=== PATIENT | male | born 1955 | race Caucasian/White ===

== ENCOUNTER 2021-11-30 20:04 | Inpatient (IN) ==
[2021-11-30 21:30] LABS: BASOPHILS % (AUTO) 0.3 % (0.2-1.0); EOSINOPHILS % (AUTO) 0.2 % (0.9-2.9); HEMATOCRIT 41.7 % (42.0-54.0); HEMOGLOBIN 14.7 g/dL (13.5-18.0); LYMPHOCYTES # (AUTO) 0.8 X10^3/uL (1.3-2.9); LYMPHOCYTES % (AUTO) 8.2 % (21.0-51.0); MEAN CORPUSCULAR HEMOGLOBIN 27.9 pg (27.0-34.0); MEAN CORPUSCULAR HGB CONC 35.2 g/dL (33.0-35.0); MEAN CORPUSCULAR VOLUME 79.2 fL (80.0-100.0); MEAN PLATELET VOLUME 6.1 fL (7.4-11.0); MONOCYTES # (AUTO) 0.6 x10^3/uL (0.3-0.8); MONOCYTES % (AUTO) 6.3 % (0.0-13.0); NEUTROPHILS # (AUTO) 8.2 x10^3/uL (2.2-4.8); RED BLOOD COUNT 5.27 X10^6/uL (4.7-6.0); RED CELL DISTRIBUTION WIDTH 13.8 % (11.6-16.5); WHITE BLOOD COUNT 9.7 X10^3/uL (3.6-10.0)
[2021-11-30 21:40] LABS: ALANINE AMINOTRANSFERASE 17 Units/L (12-78); ALBUMIN 3.5 g/dL (3.4-5.0); ALKALINE PHOSPHATASE 84 Units/L (46-116); ASPARTATE AMINO TRANSFERASE 15 Units/L (15-37); BLOOD UREA NITROGEN 19 mg/dL (7-18); CALCIUM 8.5 mg/dL (8.5-10.1); CARBON DIOXIDE 23.8 mmol/L (21-32); CHLORIDE 101 mmol/L (98-107); COR NA(FOR HYPERGLY) 137 mmol/L (136-145); SODIUM 135 mmol/L (136-145); TOTAL PROTEIN 6.8 g/dL (6.4-8.2); eGFR NON BLACK RACES 59 (>60)
--- NOTE | 2021-11-30 22:13 | DR.ABDMALE ---
HPI Time seen Time Seen by Provider: 11/30/21 22:13 PCP Primary Care Physician: NFD Complaint Chief Complaint Doctors Comments: ABDOMINAL PAIN WITH DIARHEA FOR 5 DAYS. Chief Complaint:: PT AMBULATORY IN ED WITH C/O 6/10 DIFFUSE ABD PAIN. PT STATES THAT ON Friday11/26/21 AROUND 1900 HE STARTED HAVING WATERY DIARRHEA THAT LASTED UNTIL YESTERDAY. 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) PROSTATE CA Past Surgical History: Yes Past Surgical History Comment: ASCENDING COLON RESECTION D/T CA Family History History of Family Medical Conditions: No Social History Alcohol Use: None Do you use any recreational Drugs:: No Travel Risk Coronavirus risk:travel/contact w/high risk person: No Has patient experienced Coronavirus symptoms: No Infectious screening Have you traveled outside the country in the last 6 months?: No Isolation: Standard ROS Review of Systems Constitutional: Weakness Eyes: No Symptoms Reported ENTM: No Symptoms Reported Respiratoy: No Symptoms Reported Cardiovascular: No Symptoms Reported Gastrointestinal/Abdominal: Abdominal Pain and Diarrhea Genitourinary: No Symptoms Reported Neurological: No Symptoms Reported Musculoskeletal: No Symptoms Reported Integumentary: No Symptoms Reported Hematologic/Lymphatic: No Symptoms Reported Endocrine: No Symptoms Reported Psychiatric: No Symptoms Reported All Other Systems: Reviewed and Negative PE Vital Signs Vital Signs: Temp Pulse Resp BP Pulse Ox 11/30/21 20:08 97.7 F 119 H 20 118/77 97 General Limitations: No Limitations General Appearance: Alert, In No Apparent Distress and In Distress (MODERATE DISTRESS) Head Head Exam: Normal Inspection Eyes Eye exam: Normal Appearance ENT ENT Exam: Normal Exam Neck Neck Exam: Normal Inspection Chest Chest Inspection: Normal Inspection Respiratory Respiratory Exam: Normal Lung Sounds Bilat Cardiovascular Cardiovascular Exam: Regular Rate and Normal Rhythm Abdominal Exam Abdominal Exam: Normal Inspection, Normal Bowel Sounds and Tenderness Abdominal Tenderness: Diffuse and Moderate Rectal Rectal Exam: Deferred Back Back Exam: Normal Inspection Extremeties Extremities Exam: Normal Inspection Exam: Male: Deferred Neurologic Neurological Exam: Alert and Oriented X3 Psychiatric Psychiatric Exam: Normal Affect and Normal Mood Skin Skin Exam: Warm, Dry, Intact and Normal Color MDM Differential Diagnosis Differential Diagnosis: Bowel Obstruction, Diverticular disease, Gastritus/PUD and Hernia Other differential diagnosis: COLON CANCER COURSE Treatment Treatment: PATIENT REMAINED RELATIVELY STABLE IN ER AND HAD 1LITER BOLUS OF NACL ALONG WITH 4MG ZOFRAN IV FOR NAUSEA. PATIENT HAD CT SCAN OF ABDOMEN THAT SHOWED DIVERTICULITIS AND ADHESIONS WITH BILATERAL INGUINAL HERNIAS AND FREE FLUID IN RETROVESICAL POUCH. 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 I SPOKE TO THE PATIENT ABOUT THE CONSULTATION AND TOLD HIM WHAT HE SAID AND HE STATED THAT HE WOULD BE OK WITH SEEING TO LOCAL SURGEON. SPOKE TO DR FLORES [id number] AND HE STATED THAT HE WOULD EVALUATE THE PATIENT FOR ADHESIONS AND DIVERTICULITIS. HE STATED TO MAKE PATIEN NPO AND START ZOSYN AND FLAGYL. WILL START PROTONIX 40MG IV Q 24 AND GIVE MEDICATIONS FOR PAINAND NAUSEA. ROR Labs Reviewed Laboratory Results Reviewed?: Yes Result Diagrams: 11/30/21 21:21 11/30/21 21:21 Laboratory: WBC 9.7 X10^3/uL (3.6-10.0) 11/30/21 21:21 RBC 5.27 X10^6/uL (4.7-6.0) 11/30/21 21:21 Hgb 14.7 g/dL (13.5-18.0) 11/30/21 21:21 Hct 41.7 % (42.0-54.0) L 11/30/21 21:21 MCV 79.2 fL (80.0-100.0) L 11/30/21 21:21 MCH 27.9 pg (27.0-34.0) 11/30/21 21:21 MCHC 35.2 g/dL (33.0-35.0) H 11/30/21 21:21 RDW 13.8 % (11.6-16.5) 11/30/21 21:21 Plt Count 227 X10^3/uL (150.0-450.0) 11/30/21 21:21 MPV 6.1 fL (7.4-11.0) L 11/30/21 21:21 Neut % (Auto) 85.0 % (42.0-75.0) H 11/30/21 21:21 Lymph % (Auto) 8.2 % (21.0-51.0) L 11/30/21 21:21 [place] % (Auto) 6.3 % (0.0-13.0) 11/30/21 21:21 Eos % (Auto) 0.2 % (0.9-2.9) L 11/30/21 21:21 Baso % (Auto) 0.3 % (0.2-1.0) 11/30/21 21:21 Neut # (Auto) 8.2 x10^3/uL (2.2-4.8) H 11/30/21 21:21 Lymph # (Auto) 0.8 X10^3/uL (1.3-2.9) L 11/30/21 21:21 [place] # (Auto) 0.6 x10^3/uL (0.3-0.8) 11/30/21 21:21 Eos # (Auto) 0.0 x10^3/uL (0.0-0.2) 11/30/21 21:21 Baso # (Auto) 0.0 X10^3/uL (0.0-0.1) 11/30/21 21:21 Absolute Nucleated RBC 0.0 /100WBC 11/30/21 21:21 Sodium 135 mmol/L (136-145) L 11/30/21 21:21 Corrected Sodium 137 mmol/L (136-145) 11/30/21 21:21 Potassium 3.4 mmol/L (3.5-5.1) L 11/30/21 21:21 Chloride 101 mmol/L (98-107) 11/30/21 21:21 Carbon Dioxide 23.8 mmol/L (21-32) 11/30/21 21:21 BUN 19 mg/dL (7-18) H 11/30/21 21:21 Creatinine 1.30 mg/dL (0.70-1.30) 11/30/21 21:21 Est GFR (MDRD) Af Amer > 60 (>60) 11/30/21 21:21 Est GFR (MDRD) Non-Af 59 (>60) 11/30/21 21:21 Glucose 163 mg/dL (65-99) H 11/30/21 21:21 Calcium 8.5 mg/dL (8.5-10.1) 11/30/21 21:21 Corrected Calcium TNP 11/30/21 21:21 Total Bilirubin 0.40 mg/dL (0.2-1.0) 11/30/21 21:21 AST 15 Units/L (15-37) 11/30/21 21:21 ALT 17 Units/L (12-78) 11/30/21 21:21 Alkaline Phosphatase 84 Units/L (46-116) 11/30/21 21:21 Total Protein 6.8 g/dL (6.4-8.2) 11/30/21 21:21 Albumin 3.5 g/dL (3.4-5.0) 11/30/21 21:21 Globulin 3.3 g/dL (2.5-4.5) 11/30/21 21:21 Albumin/Globulin Ratio 1.1 Ratio (1.1-2.1) 11/30/21 21:21 Specimen Type Clean catch urine 12/01/21 00: Urine Color Yellow (YELLOW) 12/01/21 00: Urine Appearance Clear (CLEAR) 12/01/21 00: Urine pH 5.0 (5.0 - 8.0) 12/01/21 00:27 Ur Specific [place] 1.020 (1.000-1.030) 12/01/21 00: Urine Protein Negative (NEGATIVE) 12/01/21 00: Urine Glucose (UA) Negative (NEGATIVE) 12/01/21 00: Urine Ketones 3+ (NEGATIVE) 12/01/21 00: Urine Blood 2+ (NEGATIVE) 12/01/21 00: Urine Nitrite Negative (NEGATIVE) 12/01/21 00: Urine Bilirubin Negative (NEGATIVE) 12/01/21 00: Urine Urobilinogen Normal (NORMAL) 12/01/21 00: Ur Leukocyte Esterase Negative (NEGATIVE) 12/01/21 00: Urine RBC 0-2 /HPF (0-3) 12/01/21 00: Urine WBC None seen /HPF (0-5) 12/01/21 00:27 Ur Squamous Epith Cells Rare /HPF (NEGATIVE) 12/01/21 00:27 Urine Bacteria Negative /HPF (NEGATIVE) 12/01/21 00:27 Ur Culture Indicated? No/not indicated 12/01/21 00:27 Opioid Opioid Risk Tool Age (Alfredo box if 16-45): No History of Preadolescent Sexual Abuse: No Total: 0 Total Score Risk Category: Low Risk Copyright: Landry MILLAN predicting aberrant behaviors Diagnosis Discharge Problem: Diverticulitis, Adhesion of intestine, Acute hypokalemia Abdominal pain Qualifiers: Qualified Code(s): R10.9 - Unspecified abdominal pain Instructions Forms: Precautions for COVID19 [facility] Patient Portal Social Distancing
[2021-11-30] MEDS ORDERED: NS 1,000 ML IV 1,000 ML IV ONE (22:14)
[2021-11-30] MEDS ORDERED: NS 1,000 ML IV 1,000 ML ONE (22:27)
--- NOTE | 2021-11-30 23:05 | CT ---
HISTORYDIFFUSE ABD PAIN, HX OF COLON CANCER WITH RESECTIONSTUDYABDOMEN/PELVIS W/O CONCOMPARISONNone.TECHNIQUEMultiple axial images of the abdomen and pelvis were obtained from the lung bases to the pubic symphysis without the administration of IV contrast. Dose reduction techniques including Automated Exposure Control (AEC) and adjustment of mA and kV were utilized.FINDINGSThe visualized portions of the lung bases are unremarkable .The liver reveals a medial aspect of the right hepatic lobe low-attenuation probable cyst measuring 2 centimeters. The spleen, pancreas, kidneys, and adrenal glands are unremarkable in their CT appearance. 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 There is small bowel anastomosis with anastomotic suture clips seen involving a small bowel loop within the right upper quadrant with significant inflammatory changes also seen. This small bowel loop also appears to be interconnected the transverse colon with anastomotic suture clips also seen at this area. It is unclear if this represent adhesions. Significant inflammatory changes are noted within the right upper quadrant mesenteric and omental fat in the area of the bowel anastomoses. There is also a prominent supraumbilical hernia with herniation of omental fat through the defect. This is incarcerated. Strangulation can't be fully excluded of the omental fat since there are marked inflammatory changes including engorgement of the small vessels of the omental fat. There is an umbilical hernia also seen with herniation of a portion of the redundant sigmoid colon through the defect at the level of the umbilicus. This is neither incarcerated or strangulated. There are also diverticuli noted of the distal descending colon at its junction with the proximal sigmoid colon with mild circumferential thickening of the petit and a few diverticuli. Pericolonic inflammatory changes within the left lower quadrant are also seen and acute diverticulitis is also of concern. There is a significant amount of fluid within the rectovesical pouch which is an abnormal finding in a male patient. There are bilateral inguinal hernias with herniation of omental fat through the defects, larger on the right than the left. There is tenting and scarring involving the right anterior aspect of the urinary bladder with inflammatory changes also seen in this area.There are multiple radiation seed implants studding the prostate gland.IMPRESSION1. Marked inflammatory changes involving small bowel and large bowel anastomosis within the right upper quadrant. There may be adhesions in this area but anastomosis of the small bowel to large bowel in this location cannot be fully excluded. 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 A surgical consult is recommended for this finding.2. Prominent supraumbilical ventral abdominal wall hernia with herniation of omental fat through the defect. This is incarcerated and strangulation of the omental fat can't be fully excluded since there is significant inflammatory changes also seen of the herniated portion of fat. An umbilical hernia is also seen with herniation of omental fat and the redundant sigmoid colon through the defect. This is neither incarcerated or strangulated.3. Acute diverticulitis of the distal descending colon at its junction with the proximal sigmoid colon. Surrounding inflammatory changes in the left lower quadrant is also seen without perforation or abscess formation.4. Significant free fluid in the rectovesical pouch of unclear etiology.Electronically signed by: Albertina Clay (November 30, 2021 23:03:50)
[2021-12-01 00:47] LABS: BILIRUBIN,URINE NEGATIVE (NEGATIVE); BLOOD/HEMOGLOBIN,URINE 2+ (NEGATIVE); GLUCOSE, URINE NEGATIVE (NEGATIVE); KETONES,URINE 3+ (NEGATIVE); LEUKOCYTE ESTERASE ,URINE NEGATIVE (NEGATIVE); NITRITES,URINE NEGATIVE (NEGATIVE); PROTEIN,URINE NEGATIVE (NEGATIVE); UROBILINOGEN,URINE NORMAL (NORMAL)
[2021-12-01 01:18] LABS: APPEARANCE,URINE CLEAR (CLEAR); BACTERIA,URINE NEGATIVE /HPF (NEGATIVE); COLOR,URINE YELLOW (YELLOW); RBC,URINE 0-2 /HPF (0-3); SQUAMOUS EPITHELIAL CELL,UR RARE /HPF (NEGATIVE)
[2021-12-01] MEDS ORDERED: ZOSYN VIAL 3.375 GRAMS 3.375 G in NS 100 ML IV 100 ML IV ONE (02:46)
[2021-12-01] MEDS ORDERED: DEMEROL INJ IVP PRN (02:47)
[2021-12-01] MEDS ORDERED: DEMEROL INJ ONE (03:01)
[2021-12-01] MEDS ORDERED: NS + KCL 20 MEQ/L 1,000 ML IV ONE (03:02)
[2021-12-01] MEDS ORDERED: ZOSYN VIAL 3.375 GRAMS IV ONE (03:02)
[2021-12-01] MEDS ORDERED: NS 100 ML IV 100 ML ONE (03:03)
[2021-12-01] MEDS ORDERED: ZOFRAN INJ 4 MG VIAL ONE (03:03)
[2021-12-01] MEDS ORDERED: ZOFRAN INJ 4 MG VIAL IVP PRN (03:19)
[2021-12-01] MEDS: NS + KCL 20 MEQ/L 1,000 ML IV SCH ×3 (03:19→21:17)
[2021-12-01] MEDS: FLAGYL IV PREMIX 500 MG BAG 500 MG/100 ML BAG IV SCH ×4 (05:15→21:18)
[2021-12-01 06:10] VITALS: BMI 32.3
[2021-12-01] MEDS: PROTONIX INJ 40 MG VIAL IVP SCH (09:50)
[2021-12-01] MEDS ORDERED: MORPHINE SULFATE INJ 2 MG INJ IVP PRN (10:35)
--- NOTE | 2021-12-01 11:04 | DR.PROGNOT ---
Hospital Progress Notes - Progress Note for Day of: Progress Note Date: 12/01/21 - Chief Complaint Chief Complaint: Pt is admitted with acute diverticulitis .. feeling slightly better this am .. no nausean or vomiting .. temp 99. - Past Medical Family Social History Past Med/Fam/Surg Hx: No changes since H&P Allergies: Allergies No Known Drug Allergies Allergy (Verified 11/30/21 20:23) - Review Of Systems ROS: No change since H&P - Vital Signs Vital Signs: Temperature 99.1 F Pulse Rate [Left] 88 Pulse Rate 119 Respiratory Rate 20 Blood Pressure [Left Arm] 126/70 Blood Pressure 118/77 O2 Sat by Pulse Oximetry 96 - Physical Exam Oriented: Normal Eyes: Normal Ear: Normal Nose: Normal Respiratory: Normal Cardiovascular: Normal : Normal GI:Auscultation: Decreased GI:Palpation: Other (soft abdomen with diffuse tenderness more on LLQ ..has small ventral hernia ) Speech Pattern: Clear, Appropriate - Laboratory and Diagnostics Result Diagrams: 11/30/21 21:21 11/30/21 21:21 Labs: Laboratory WBC 9.7 X10^3/uL (3.6-10.0) 11/30/21 21:21 RBC 5.27 X10^6/uL (4.7-6.0) 11/30/21 21:21 Hgb 14.7 g/dL (13.5-18.0) 11/30/21 21:21 Hct 41.7 % (42.0-54.0) L 11/30/21 21:21 MCV 79.2 fL (80.0-100.0) L 11/30/21 21:21 MCH 27.9 pg (27.0-34.0) 11/30/21 21:21 MCHC 35.2 g/dL (33.0-35.0) H 11/30/21 21:21 RDW 13.8 % (11.6-16.5) 11/30/21 21:21 Plt Count 227 X10^3/uL (150.0-450.0) 11/30/21 21:21 MPV 6.1 fL (7.4-11.0) L 11/30/21 21:21 Neut % (Auto) 85.0 % (42.0-75.0) H 11/30/21 21:21 Lymph % (Auto) 8.2 % (21.0-51.0) L 11/30/21 21:21 [place] % (Auto) 6.3 % (0.0-13.0) 11/30/21 21:21 Eos % (Auto) 0.2 % (0.9-2.9) L 11/30/21 21:21 Baso % (Auto) 0.3 % (0.2-1.0) 11/30/21 21:21 Neut # (Auto) 8.2 x10^3/uL (2.2-4.8) H 11/30/21 21:21 Lymph # (Auto) 0.8 X10^3/uL (1.3-2.9) L 11/30/21 21:21 [place] # (Auto) 0.6 x10^3/uL (0.3-0.8) 11/30/21 21:21 Eos # (Auto) 0.0 x10^3/uL (0.0-0.2) 11/30/21 21:21 Baso # (Auto) 0.0 X10^3/uL (0.0-0.1) 11/30/21 21:21 Absolute Nucleated RBC 0.0 /100WBC 11/30/21 21:21 Sodium 135 mmol/L (136-145) L 11/30/21 21:21 Corrected Sodium 137 mmol/L (136-145) 11/30/21 21:21 Potassium 3.4 mmol/L (3.5-5.1) L 11/30/21 21:21 Chloride 101 mmol/L (98-107) 11/30/21 21:21 Carbon Dioxide 23.8 mmol/L (21-32) 11/30/21 21:21 BUN 19 mg/dL (7-18) H 11/30/21 21:21 Creatinine 1.30 mg/dL (0.70-1.30) 11/30/21 21:21 Est GFR (MDRD) Af Amer > 60 (>60) 11/30/21 21:21 Est GFR (MDRD) Non-Af 59 (>60) 11/30/21 21:21 Glucose 163 mg/dL (65-99) H 11/30/21 21:21 Calcium 8.5 mg/dL (8.5-10.1) 11/30/21 21:21 Corrected Calcium TNP 11/30/21 21:21 Total Bilirubin 0.40 mg/dL (0.2-1.0) 11/30/21 21:21 AST 15 Units/L (15-37) 11/30/21 21:21 ALT 17 Units/L (12-78) 11/30/21 21:21 Alkaline Phosphatase 84 Units/L (46-116) 11/30/21 21:21 Total Protein 6.8 g/dL (6.4-8.2) 11/30/21 21: Albumin 3.5 g/dL (3.4-5.0) 11/30/21 21: Globulin 3.3 g/dL (2.5-4.5) 11/30/21 21: Albumin/Globulin Ratio 1.1 Ratio (1.1-2.1) 11/30/21 21:21 Specimen Type Clean catch urine 12/01/21 00: Urine Color Yellow (YELLOW) 12/01/21 00: Urine Appearance Clear (CLEAR) 12/01/21 00: Urine pH 5.0 (5.0 - 8.0) 12/01/21 00: Ur Specific [place] 1.020 (1.000-1.030) 12/01/21 00: Urine Protein Negative (NEGATIVE) 12/01/21 00: Urine Glucose (UA) Negative (NEGATIVE) 12/01/21 00: Urine Ketones 3+ (NEGATIVE) 12/01/21 00: Urine Blood 2+ (NEGATIVE) 12/01/21 00: Urine Nitrite Negative (NEGATIVE) 12/01/21 00: Urine Bilirubin Negative (NEGATIVE) 12/01/21 00: Urine Urobilinogen Normal (NORMAL) 12/01/21 00: Ur Leukocyte Esterase Negative (NEGATIVE) 12/01/21 00: Urine RBC 0-2 /HPF (0-3) 12/01/21 00: Urine WBC None seen /HPF (0-5) 12/01/21 00: Ur Squamous Epith Cells Rare /HPF (NEGATIVE) 12/01/21 00: Urine Bacteria Negative /HPF (NEGATIVE) 12/01/21 00: Ur Culture Indicated? No/not indicated 12/01/21 00:27 SARS-CoV-2 (PCR) Negative (NEGATIVE) 12/01/21 02:32 - Assessment and Plan 1: acute sigmoid diverticulitis .. ventral and umbilical hernias . h/o colon and prostate ca . on IV ABT . IVF , NPO ( may have water ) . DVT prophylaxis . - Problem Patient Problems: Patient Problems Diverticulitis (Acute) K57.92 Adhesion of intestine (Acute) K66.0 Acute hypokalemia (Acute) E87.6 Abdominal pain (Acute) R10.9
[2021-12-01] MEDS: LOVENOX INJ 40 MG SYR SC SCH (12:37)
[2021-12-01] MEDS: ZOSYN VIAL 3.375 GRAMS 3.375 G in NS 100 ML IV 100 ML IV SCH ×3 (12:37→21:18)
[2021-12-01] MEDS ORDERED: TYLENOL 325 MG TAB PO PRN (16:34)
[2021-12-02] MEDS: NS + KCL 20 MEQ/L 1,000 ML IV SCH ×3 (02:15→20:40)
[2021-12-02] MEDS: FLAGYL IV PREMIX 500 MG BAG 500 MG/100 ML BAG IV SCH ×4 (02:43→20:40)
[2021-12-02] MEDS: ZOSYN VIAL 3.375 GRAMS 3.375 G in NS 100 ML IV 100 ML IV SCH ×3 (05:54→22:03)
--- NOTE | 2021-12-02 07:08 | RAD ---
HISTORYDiverticulitisSTUDYKUBCOMPARISON .br.br.br.br.br.br moderate gaseous distention of scattered segments of small and large bowel. No localized mass, ascites, abnormal calcification or visceral enlargement noted. Radiation seed sources are noted in the prostate.IMPRESSIONNonobstructive intestinal distention. No localized abnormality demonstrated. Evidence of prostate brachytherapy.Electronically signed by: HIGINIO SOTO (December 02, 2021 07:06:49)
[2021-12-02] MEDS ORDERED: KLOR-CON PO PRN (07:52)
[2021-12-02] MEDS ORDERED: MICRO K EXTEN CAP 10 MEQ PO PRN (07:52)
[2021-12-02] MEDS ORDERED: K-RIDER 10 MEQ/NS 100 ML 10 MEQ/100 ML BAG IV PRN (07:52)
[2021-12-02] MEDS ORDERED: POTASSIUM CHL 40 MEQ/NS 0.45% 500 ML IV PRN (07:52)
[2021-12-02] MEDS ORDERED: POTASSIUM CHL 60 MEQ/NS 0.45% 500 ML IV PRN (07:52)
[2021-12-02] MEDS ORDERED: K-DUR TAB 20 MEQ PO PRN (07:52)
[2021-12-02] MEDS ORDERED: POTASSIUM CHLORIDE LIQ 20 MEQ UDC PO PRN (07:52)
[2021-12-02] MEDS: LOVENOX INJ 40 MG SYR SC SCH (09:31)
[2021-12-02] MEDS: PROTONIX INJ 40 MG VIAL IVP SCH (09:32)
--- NOTE | 2021-12-02 09:35 | DR.PROGNOT ---
Hospital Progress Notes - Progress Note for Day of: Progress Note Date: 12/02/21 - Chief Complaint Chief Complaint: Pt is admitted with acute diverticulitis .. feeling slightly better this am .. had small sift BM. c/o being full and tight abdomen .. no nausean or vomiting .. temp 98.2. afebrile . - Past Medical Family Social History Past Med/Fam/Surg Hx: No changes since H&P Allergies: Allergies No Known Drug Allergies Allergy (Verified 11/30/21 20:23) - Review Of Systems ROS: No change since H&P - Vital Signs Vital Signs: Temperature 98.2 F Pulse Rate [Left] 70 Pulse Rate 119 Respiratory Rate 18 Blood Pressure [Right Arm] 130/73 Blood Pressure [Left Arm] 126/64 Blood Pressure 118/77 O2 Sat by Pulse Oximetry 96 - Physical Exam Oriented: Normal Eyes: Normal Ear: Normal Nose: Normal Respiratory: Normal Cardiovascular: Normal : Normal GI:Auscultation: Decreased GI:Palpation: Other (soft abdomen with diffuse tenderness more on LLQ ..has sma ll ventral hernia ) GI: Tenderness: Other (soft, full abdomen with diffuse tenderness .. BS+ ,hypoactive .) Speech Pattern: Clear, Appropriate - Laboratory and Diagnostics Result Diagrams: 11/30/21 21:21 11/30/21 21:21 Labs: Laboratory WBC 9.7 X10^3/uL (3.6-10.0) 11/30/21 21:21 RBC 5.27 X10^6/uL (4.7-6.0) 11/30/21 21:21 Hgb 14.7 g/dL (13.5-18.0) 11/30/21 21:21 Hct 41.7 % (42.0-54.0) L 11/30/21 21:21 MCV 79.2 fL (80.0-100.0) L 11/30/21 21:21 MCH 27.9 pg (27.0-34.0) 11/30/21 21:21 MCHC 35.2 g/dL (33.0-35.0) H 11/30/21 21:21 RDW 13.8 % (11.6-16.5) 11/30/21 21:21 Plt Count 227 X10^3/uL (150.0-450.0) 11/30/21 21:21 MPV 6.1 fL (7.4-11.0) L 11/30/21 21:21 Neut % (Auto) 85.0 % (42.0-75.0) H 11/30/21 21:21 Lymph % (Auto) 8.2 % (21.0-51.0) L 11/30/21 21:21 [place] % (Auto) 6.3 % (0.0-13.0) 11/30/21 21:21 Eos % (Auto) 0.2 % (0.9-2.9) L 11/30/21 21:21 Baso % (Auto) 0.3 % (0.2-1.0) 11/30/21 21:21 Neut # (Auto) 8.2 x10^3/uL (2.2-4.8) H 11/30/21 21:21 Lymph # (Auto) 0.8 X10^3/uL (1.3-2.9) L 11/30/21 21:21 [place] # (Auto) 0.6 x10^3/uL (0.3-0.8) 11/30/21 21:21 Eos # (Auto) 0.0 x10^3/uL (0.0-0.2) 11/30/21 21:21 Baso # (Auto) 0.0 X10^3/uL (0.0-0.1) 11/30/21 21:21 Absolute Nucleated RBC 0.0 /100WBC 11/30/21 21:21 Sodium 135 mmol/L (136-145) L 11/30/21 21:21 Corrected Sodium 137 mmol/L (136-145) 11/30/21 21:21 Potassium 3.4 mmol/L (3.5-5.1) L 11/30/21 21:21 Chloride 101 mmol/L (98-107) 11/30/21 21:21 Carbon Dioxide 23.8 mmol/L (21-32) 11/30/21 21:21 BUN 19 mg/dL (7-18) H 11/30/21 21:21 Creatinine 1.30 mg/dL (0.70-1.30) 11/30/21 21:21 Est GFR (MDRD) Af Amer > 60 (>60) 11/30/21 21:21 Est GFR (MDRD) Non-Af 59 (>60) 11/30/21 21:21 Glucose 163 mg/dL (65-99) H 11/30/21 21:21 Calcium 8.5 mg/dL (8.5-10.1) 11/30/21 21:21 Corrected Calcium TNP 11/30/21 21:21 Magnesium 1.7 mg/dL (1.7-2.9) 12/02/21 08:07 Total Bilirubin 0.40 mg/dL (0.2-1.0) 11/30/21 21:21 AST 15 Units/L (15-37) 11/30/21 21:21 ALT 17 Units/L (12-78) 11/30/21 21:21 Alkaline Phosphatase 84 Units/L (46-116) 11/30/21 21:21 Total Protein 6.8 g/dL (6.4-8.2) 11/30/21 21:21 Albumin 3.5 g/dL (3.4-5.0) 11/30/21 21: Globulin 3.3 g/dL (2.5-4.5) 11/30/21 21:21 Albumin/Globulin Ratio 1.1 Ratio (1.1-2.1) 11/30/21 21:21 Specimen Type Clean catch urine 12/01/21 00:27 Urine Color Yellow (YELLOW) 12/01/21 00: Urine Appearance Clear (CLEAR) 12/01/21 00: Urine pH 5.0 (5.0 - 8.0) 12/01/21 00: Ur Specific [place] 1.020 (1.000-1.030) 12/01/21 00: Urine Protein Negative (NEGATIVE) 12/01/21 00: Urine Glucose (UA) Negative (NEGATIVE) 12/01/21 00: Urine Ketones 3+ (NEGATIVE) 12/01/21 00: Urine Blood 2+ (NEGATIVE) 12/01/21 00: Urine Nitrite Negative (NEGATIVE) 12/01/21 00: Urine Bilirubin Negative (NEGATIVE) 12/01/21 00: Urine Urobilinogen Normal (NORMAL) 12/01/21 00: Ur Leukocyte Esterase Negative (NEGATIVE) 12/01/21 00: Urine RBC 0-2 /HPF (0-3) 12/01/21 00:27 Urine WBC None seen /HPF (0-5) 12/01/21 00:27 Ur Squamous Epith Cells Rare /HPF (NEGATIVE) 12/01/21 00:27 Urine Bacteria Negative /HPF (NEGATIVE) 12/01/21 00:27 Ur Culture Indicated? No/not indicated 12/01/21 00:27 SARS-CoV-2 (PCR) Negative (NEGATIVE) 12/01/21 02:32 - Assessment and Plan 1: acute sigmoid diverticulitis .. ventral and umbilical hernias . h/o colon and prostate ca . on IV ABT . IVF ,. clear liquid . DVT prophylaxis . - Problem Patient Problems: Patient Problems Diverticulitis (Acute) K57.92 Adhesion of intestine (Acute) K66.0 Acute hypokalemia (Acute) E87.6 Abdominal pain (Acute) R10.9
[2021-12-03] MEDS: NS + KCL 20 MEQ/L 1,000 ML IV SCH ×4 (03:00→20:57)
[2021-12-03] MEDS: FLAGYL IV PREMIX 500 MG BAG 500 MG/100 ML BAG IV SCH ×4 (04:00→21:05)
[2021-12-03 06:12] LABS: BLOOD UREA NITROGEN 6 mg/dL (7-18); CALCIUM 7.8 mg/dL (8.5-10.1); CARBON DIOXIDE 22.6 mmol/L (21-32); CHLORIDE 106 mmol/L (98-107); CREATININE 0.87 mg/dL (0.70-1.30); SODIUM 139 mmol/L (136-145); eGFR NON BLACK RACES > 60 (>60)
[2021-12-03 06:16] LABS: BASOPHILS # (AUTO) 0.1 X10^3/uL (0.0-0.1); BASOPHILS % (AUTO) 0.6 % (0.2-1.0); EOSINOPHILS # (AUTO) 0.1 x10^3/uL (0.0-0.2); EOSINOPHILS % (AUTO) 0.9 % (0.9-2.9); HEMATOCRIT 32.4 % (42.0-54.0); HEMOGLOBIN 11.7 g/dL (13.5-18.0); LYMPHOCYTES # (AUTO) 1.1 X10^3/uL (1.3-2.9); LYMPHOCYTES % (AUTO) 13.6 % (21.0-51.0); MEAN CORPUSCULAR HEMOGLOBIN 28.5 pg (27.0-34.0); MEAN CORPUSCULAR HGB CONC 36.1 g/dL (33.0-35.0); MEAN CORPUSCULAR VOLUME 78.9 fL (80.0-100.0); MEAN PLATELET VOLUME 6.2 fL (7.4-11.0); MONOCYTES # (AUTO) 0.7 x10^3/uL (0.3-0.8); MONOCYTES % (AUTO) 9.4 % (0.0-13.0); NEUTROPHILS # (AUTO) 5.9 x10^3/uL (2.2-4.8); NEUTROPHILS % (AUTO) 75.5 % (42.0-75.0); RED BLOOD COUNT 4.11 X10^6/uL (4.7-6.0); RED CELL DISTRIBUTION WIDTH 14.1 % (11.6-16.5); WHITE BLOOD COUNT 7.9 X10^3/uL (3.6-10.0)
[2021-12-03] MEDS: ZOSYN VIAL 3.375 GRAMS 3.375 G in NS 100 ML IV 100 ML IV SCH ×3 (06:33→22:36)
--- NOTE | 2021-12-03 06:40 | RAD ---
HISTORYDiverticulitisSTUDYKUBCOMPARISON .br.br.br.br.br.br nonspecific and nonobstructive. No abnormal masses or abnormal calcifications are identified. Regional skeleton is unremarkable.IMPRESSIONNonspecific, nonobstructive bowel gas patternElectronically signed by: ARLENE LIN (December 03, 2021 06:38:53)
[2021-12-03] MEDS ORDERED: ATIVAN TAB 1 MG PO PRN (08:22)
[2021-12-03] MEDS: LOVENOX INJ 40 MG SYR SC SCH (09:17)
[2021-12-03] MEDS: PROTONIX INJ 40 MG VIAL IVP SCH (09:17)
--- NOTE | 2021-12-03 14:44 | DR.PROGNOT ---
Hospital Progress Notes - Progress Note for Day of: Progress Note Date: 12/03/21 - Chief Complaint Chief Complaint: feeling better this am .. had normal BM. still having fullness of the abdomen .. no nausean or vomiting .. afebrile . - Past Medical Family Social History Past Med/Fam/Surg Hx: No changes since H&P Allergies: Allergies No Known Drug Allergies Allergy (Verified 11/30/21 20:23) - Review Of Systems ROS: No change since H&P - Vital Signs Vital Signs: Temperature 97.5 F Pulse Rate [Left] 71 Pulse Rate 119 Respiratory Rate 20 Blood Pressure [Right Arm] 140/72 Blood Pressure [Left Arm] 126/64 Blood Pressure 118/77 O2 Sat by Pulse Oximetry 98 - Physical Exam Oriented: Normal Eyes: Normal Ear: Normal Nose: Normal Respiratory: Normal Cardiovascular: Normal : Normal GI:Auscultation: Decreased GI:Palpation: Other (soft abdomen with diffuse tenderness more on LLQ ..has small ventral hernia ) GI: Tenderness: Other (soft, full abdomen with diffuse tenderness .. BS+ ,hypoactive .) Speech Pattern: Clear, Appropriate - Laboratory and Diagnostics Result Diagrams: 12/03/21 05:33 12/03/21 05:32 Labs: Laboratory WBC 7.9 X10^3/uL (3.6-10.0) 12/03/21 05:33 RBC 4.11 X10^6/uL (4.7-6.0) L 12/03/21 05:33 Hgb 11.7 g/dL (13.5-18.0) L D 12/03/21 05:33 Hct 32.4 % (42.0-54.0) L 12/03/21 05:33 MCV 78.9 fL (80.0-100.0) L 12/03/21 05:33 MCH 28.5 pg (27.0-34.0) 12/03/21 05:33 MCHC 36.1 g/dL (33.0-35.0) H 12/03/21 05:33 RDW 14.1 % (11.6-16.5) 12/03/21 05:33 Plt Count 244 X10^3/uL (150.0-450.0) 12/03/21 05:33 MPV 6.2 fL (7.4-11.0) L 12/03/21 05:33 Neut % (Auto) 75.5 % (42.0-75.0) H 12/03/21 05:33 Lymph % (Auto) 13.6 % (21.0-51.0) L 12/03/21 05:33 [place] % (Auto) 9.4 % (0.0-13.0) 12/03/21 05:33 Eos % (Auto) 0.9 % (0.9-2.9) 12/03/21 05:33 Baso % (Auto) 0.6 % (0.2-1.0) 12/03/21 05:33 Neut # (Auto) 5.9 x10^3/uL (2.2-4.8) H 12/03/21 05:33 Lymph # (Auto) 1.1 X10^3/uL (1.3-2.9) L 12/03/21 05:33 [place] # (Auto) 0.7 x10^3/uL (0.3-0.8) 12/03/21 05:33 Eos # (Auto) 0.1 x10^3/uL (0.0-0.2) 12/03/21 05:33 Baso # (Auto) 0.1 X10^3/uL (0.0-0.1) 12/03/21 05:33 Absolute Nucleated RBC 0.0 /100WBC 12/03/21 05:33 Sodium 139 mmol/L (136-145) 12/03/21 05:32 Corrected Sodium TNP 12/03/21 05:32 Potassium 3.5 mmol/L (3.5-5.1) 12/03/21 05:32 Chloride 106 mmol/L (98-107) 12/03/21 05:32 Carbon Dioxide 22.6 mmol/L (21-32) 12/03/21 05:32 BUN 6 mg/dL (7-18) L 12/03/21 05:32 Creatinine 0.87 mg/dL (0.70-1.30) 12/03/21 05:32 Est GFR (MDRD) Af Amer > 60 (>60) 12/03/21 05:32 Est GFR (MDRD) Non-Af > 60 (>60) 12/03/21 05:32 Glucose 100 mg/dL (65-99) H 12/03/21 05:32 Calcium 7.8 mg/dL (8.5-10.1) L 12/03/21 05:32 Corrected Calcium TNP 11/30/21 21:21 Magnesium 1.7 mg/dL (1.7-2.9) 12/02/21 08:07 Total Bilirubin 0.40 mg/dL (0.2-1.0) 11/30/21 21:21 AST 15 Units/L (15-37) 11/30/21 21:21 ALT 17 Units/L (12-78) 11/30/21 21:21 Alkaline Phosphatase 84 Units/L (46-116) 11/30/21 21:21 Total Protein 6.8 g/dL (6.4-8.2) 11/30/21 21:21 Albumin 3.5 g/dL (3.4-5.0) 11/30/21 21:21 Globulin 3.3 g/dL (2.5-4.5) 11/30/21 21:21 Albumin/Globulin Ratio 1.1 Ratio (1.1-2.1) 11/30/21 21:21 Specimen Type Clean catch urine 12/01/21 00:27 Urine Color Yellow (YELLOW) 12/01/21 00: Urine Appearance Clear (CLEAR) 12/01/21 00: Urine pH 5.0 (5.0 - 8.0) 12/01/21 00:27 Ur Specific [place] 1.020 (1.000-1.030) 12/01/21 00:27 Urine Protein Negative (NEGATIVE) 12/01/21 00: Urine Glucose (UA) Negative (NEGATIVE) 12/01/21 00: Urine Ketones 3+ (NEGATIVE) 12/01/21 00: Urine Blood 2+ (NEGATIVE) 12/01/21 00: Urine Nitrite Negative (NEGATIVE) 12/01/21 00: Urine Bilirubin Negative (NEGATIVE) 12/01/21 00: Urine Urobilinogen Normal (NORMAL) 12/01/21 00: Ur Leukocyte Esterase Negative (NEGATIVE) 12/01/21 00:27 Urine RBC 0-2 /HPF (0-3) 12/01/21 00: Urine WBC None seen /HPF (0-5) 12/01/21 00:27 Ur Squamous Epith Cells Rare /HPF (NEGATIVE) 12/01/21 00:27 Urine Bacteria Negative /HPF (NEGATIVE) 12/01/21 00:27 Ur Culture Indicated? No/not indicated 12/01/21 00:27 SARS-CoV-2 (PCR) Negative (NEGATIVE) 12/01/21 02:32 - Assessment and Plan 1: acute sigmoid diverticulitis .. ventral and umbilical hernias , no obstruction .. h/o colon and prostate ca . on IV ABT . IVF ,. full liquid today . . DVT prophylaxis . - Problem Patient Problems: Patient Problems Diverticulitis (Acute) K57.92 Adhesion of intestine (Acute) K66.0 Acute hypokalemia (Acute) E87.6 Abdominal pain (Acute) R10.9
[2021-12-03] MEDS: MAGNESIUM SULFATE 1 GRAM/100 mL PREMIX 1 G/100 ML BAG IV PRN ×2 (17:30→19:46)
[2021-12-04] MEDS: NS + KCL 20 MEQ/L 1,000 ML IV SCH (02:53)
[2021-12-04] MEDS: FLAGYL IV PREMIX 500 MG BAG 500 MG/100 ML BAG IV SCH ×2 (02:58→09:07)
[2021-12-04] MEDS: ZOSYN VIAL 3.375 GRAMS 3.375 G in NS 100 ML IV 100 ML IV SCH ×2 (06:14→14:15)
[2021-12-04 06:24] LABS: BASOPHILS # (AUTO) 0.1 X10^3/uL (0.0-0.1); BASOPHILS % (AUTO) 0.8 % (0.2-1.0); EOSINOPHILS # (AUTO) 0.1 x10^3/uL (0.0-0.2); EOSINOPHILS % (AUTO) 1.3 % (0.9-2.9); HEMATOCRIT 33.3 % (42.0-54.0); HEMOGLOBIN 12.1 g/dL (13.5-18.0); LYMPHOCYTES # (AUTO) 0.9 X10^3/uL (1.3-2.9); LYMPHOCYTES % (AUTO) 12.9 % (21.0-51.0); MEAN CORPUSCULAR HEMOGLOBIN 28.4 pg (27.0-34.0); MEAN CORPUSCULAR HGB CONC 36.2 g/dL (33.0-35.0); MEAN CORPUSCULAR VOLUME 78.5 fL (80.0-100.0); MEAN PLATELET VOLUME 6.1 fL (7.4-11.0); MONOCYTES # (AUTO) 0.7 x10^3/uL (0.3-0.8); MONOCYTES % (AUTO) 9.5 % (0.0-13.0); NEUTROPHILS # (AUTO) 5.2 x10^3/uL (2.2-4.8); NEUTROPHILS % (AUTO) 75.5 % (42.0-75.0); RED BLOOD COUNT 4.24 X10^6/uL (4.7-6.0); WHITE BLOOD COUNT 6.9 X10^3/uL (3.6-10.0)
[2021-12-04] MEDS: LOVENOX INJ 40 MG SYR SC SCH (09:06)
[2021-12-04] MEDS: PROTONIX INJ 40 MG VIAL IVP SCH (09:07)
--- NOTE | 2021-12-04 13:46 | CT ---
HISTORYABD PAIN, DIVERTICULITISSTUDYABDOMEN/PELVIS WITH [id number] images through the abdomen and pelvis were performed after the administration of oral and intravenous contrast. CT scan was performed following ALARA (As low as Reasonably Achievable).Coronal and Sagittal reformatted images were performed.FINDINGSThe lung bases demonstrate mild atelectasis. The liver is no significant enlarged there is a well-circumscribed lesion anteriorly likely cyst measuring 1.9 centimeters. The spleen is nonenlarged. The pancreas is normal. The stomach is no distended. There is no intra or extrahepatic biliary dilatationThere is again seen sutures with an area of stranding in the right upper quadrant, patient is status partial colectomy, there is a small to large bowel anastomosis that appears patent. 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 Bilateral normal-sized kidneys without hydronephrosis.Pelvis: There are multiple prostatic seeds. The rectosigmoid colon is fluid filled, the rectosigmoid colon is projecting in the right paracolic gutter region with a blind ending in the right mid abdomen.Since prior study, there has been interval improved of previously seen fluid in the cul de sac, the urinary bladder is unremarkable.No pelvic adenopathy. There is a right inguinal hernia containing fat.There is an unchanged supraumbilical right-sided ventral hernia containing fat. There is also a periumbilical ventral hernia containing small bowel loops without evidence of obstruction.Bone windows no evidence of aggressive bone lesions. No acute fractures.IMPRESSIONImprovement of previously seen free fluid in the cul de sac.Status post partial colectomy with a large/small bowel anastomosis in the right upper quadrant with a probably side to side small-bowel anastomosis with stranding and a bubble of air suggestive of a containing perforation versus dehiscence with suspected fistula with the small-bowel loop at the 3rd segment.No drainable collectionVentral hernias and right inguinal hernia.Electronically signed by: Neha Gibson (December 04, 2021 13:45:10)
[2021-12-04 14:11] VITALS: BP 142/85
[2021-12-04 22:35] LABS: ALANINE AMINOTRANSFERASE 13 Units/L (12-78); ALBUMIN 2.7 g/dL (3.4-5.0); ALKALINE PHOSPHATASE 65 Units/L (46-116); ASPARTATE AMINO TRANSFERASE 14 Units/L (15-37); COR CA(FOR HYPOALB) 8.8 mg/dL (8.5-10.1); TOTAL PROTEIN 5.4 g/dL (6.4-8.2)
== END 2021-12-04 15:40 | disposition home or self-care (01) | DRG 392 ==
LOC: ER 20:04 → MED/SURG 12-01 02:41
PROVIDERS: ADMIT Surgery; ATTEND Surgery
DX: Z90.49 Acquired absence of other specified parts of digestive tract; Z98.890 Other specified postprocedural states; E87.6 Hypokalemia; K43.2 Incisional hernia without obstruction or gangrene; Z85.038 Personal history of other malignant neoplasm of large intestine; K42.9 Umbilical hernia without obstruction or gangrene; R10.84 Generalized abdominal pain; Z85.46 Personal history of malignant neoplasm of prostate; K66.0 Peritoneal adhesions (postprocedural) (postinfection); Z20.822 Contact with and (suspected) exposure to COVID-19; K57.32 Diverticulitis of large intestine without perforation or abscess without bleeding